=== PATIENT | female | born 1970 | race Two or more races ===

== ENCOUNTER 2024-10-12 14:38 | Emergency (ER) | payer OTHER ==
[~2024-10-12] VITALS: Ht 162.6 cm; Wt 73.5 kg
[2024-10-12] MEDS ORDERED: ZESTRIL10 M1 (15:14)
[2024-10-12] MEDS ORDERED: ORPHENADRINE CITRATE 30 MG/ML AMPUL ONE (17:10)
[2024-10-12] MEDS ORDERED: KETOROLAC TROMETHAMINE 60 MG VIAL IM ONE ×2 (17:10→17:15)
[2024-10-12] MEDS ORDERED: DEXAMETHASONE SODIUM PHOSPHATE 4 MG/ML VIAL ONE (17:10)
[2024-10-12] MEDS ORDERED: ORPHENADRINE CITRATE 30 MG/ML AMPUL IM ONE (17:15)
[2024-10-12] MEDS ORDERED: DEXAMETHASONE SODIUM PHOSPHATE 4 MG/ML VIAL IM ONE (17:15)
[2024-10-12] MEDS ORDERED: DICLOFENAC SODI75 MG PO (17:16)
[2024-10-12] MEDS ORDERED: BACLOFEN10 MG PO (17:16)
== END 2024-10-12 19:07 | disposition home or self-care (01) ==
LOC: ER 14:41
DX: M54.50 Low back pain, unspecified (principal); I10 Essential (primary) hypertension